=== PATIENT | male | born 1990 | race Caucasian/White ===

== ENCOUNTER 2018-03-06 13:08 | Emergency (ER) | payer BC ==
[2018-03-06 13:22] VITALS: BP 131/91
[2018-03-06] MEDS ORDERED: Albuterol/Ipratropium NEB.SOL* Albuterol 2.5 MG/Ipratropium 0.5 MG 3 ML INH ONE (13:31)
[2018-03-06] MEDS ORDERED: predniSONE TAB* 20 MG PO ONE (13:32)
--- NOTE | 2018-03-06 13:37 | ED ---
Respiratory - HPI Summary HPI Summary: 27 yr old male with two weeks of cough, tightness in his chest, SOB. He started using the MDI given to him in the ER a couple of years ago, and it seems to help some, but he ran out. He has been coughing up some phlegm. He has had feeling of some chills, fever. He denies smoking cigarettes, but has been smoking cigars. He has had pain with coughing. He states when he gets tight in the chest and SOB is with coughing episodes. He has had prior wheezing and acute bronchitis in the past. - History of Current Complaint Chief Complaint: UCChestPain Stated Complaint: CHEST PAIN/TROUBLE BREATHING Time Seen by Provider: 03/06/18 13:24 Pain Intensity: 5 - Allergy/Home Medications Allergies/Adverse Reactions: Allergies Allergy/AdvReac Type Severity Reaction Status Date / Time No Known Allergies Allergy Verified 03/06/18 13:16 Home Medications: Home Medications Albuterol HFA INHALER* [Ventolin HFA Inhaler*] 2 puff Q4HR PRN 03/06/18 [ History Confirmed 03/06/18] PMH/Surg Hx/FS Hx/Imm Hx Respiratory History: Reports: Hx Asthma Infectious Disease History: No Infectious Disease History: Denies: Traveled Outside the [place] in Last 30 Days - Family History Known Family History: Positive: None Family History: Denies cad and PE - Social History Occupation: Employed Full-time Alcohol Use: None Substance Use Type: Reports: None Smoking Status (MU): Light Every Day Tobacco Smoker Type: Cigars Amount Used/How Often: 1-2 every couple of months Have You Smoked in the Last Year: Yes Review of Systems Positive: Fever, Chills Positive: Chest Pain Positive: Shortness Of Breath, Cough All Other Systems Reviewed And Are Negative: Yes Physical Exam Triage Information Reviewed: Yes Vital Signs On Initial Exam: Initial Vitals Temp Pulse Resp BP Pulse Ox 97.6 F 92 25 131/91 96 03/06/18 13:13 03/06/18 13:13 03/06/18 13:13 03/06/18 13:13 03/06/18 13:13 Vital Signs Reviewed: Yes Appearance: Positive: Well-Appearing, No Pain Distress Skin: Positive: Warm, Skin Color Reflects Adequate Perfusion Head/Face: Positive: Normal Head/Face Inspection Eyes: Positive: EOMI ENT: Positive: Normal ENT inspection, Pharynx normal. Negative: Muffled voice, Hoarse voice Neck: Positive: Supple, Nontender Respiratory/Lung Sounds: Positive: Decreased Breath Sounds - bilateral, Wheezes - bialterally mostly in the bases. Cardiovascular: Positive: RRR. Negative: Murmur Abdomen Description: Positive: Nontender Musculoskeletal: Positive: Strength/ROM Intact Neurological: Positive: Sensory/Motor Intact, Alert, Oriented to Person Place, Time, CN Intact II-III Psychiatric: Positive: Normal - Brittany Coma Scale Best Eye Response: 4 - Spontaneous Best Motor Response: 6 - Obeys Commands Best Verbal Response: 5 - Oriented Coma Scale Total: 15 Diagnostics - Vital Signs Vital Signs Temp Pulse Resp BP Pulse Ox 03/06/18 13:13 97.6 F 92 25 131/91 96 - Laboratory Lab Statement: Any lab studies that have been ordered have been reviewed, and results considered in the medical decision making process. - Radiology chest pa/lat Xray Interpretation: No Acute Changes Radiology Interpretation Completed By: Radiologist - EKG 03/06/18 Cardiac Rate: NL EKG Rhythm: Sinus Rhythm ST Segment: Normal Ectopy: None Re-Evaluation - Re-Evaluation First Eval Change: Improved - He states he feels better after the neb. His lungs are now with better air movement. Disposition - Course Course Of Treatment: 27 yr old male with improvement after neb. Will rx with MDI and steroids. FU with PMD. - Diagnoses Provider Diagnoses: Asthmatic bronchitis, Hypertension Discharge - Sign-Out/Discharge Documenting (check all that apply): Discharge/Admit/Transfer - Discharge Plan Condition: Good Disposition: HOME Prescriptions: Albuterol HFA INHALER* [Ventolin HFA Inhaler*] 1 - 2 puff INH Q4H PRN #1 mdi PRN Reason: Cough predniSONE TAB* [Deltasone TAB*] 40 mg PO DAILY #8 tab Patient Education Materials: Hypertension (ED), Bronchospasm (ED) Referrals: Jenn Ayala MD [Medical Doctor] - 2 Days - Billing Disposition and Condition Condition: GOOD Disposition: HOME
--- NOTE | 2018-03-06 14:31 | RAD ---
HISTORY: Chest pain COMPARISONS: None VIEWS: 4: Frontal dual-energy and lateral views of the chest. FINDINGS: CARDIOMEDIASTINAL SILHOUETTE: The cardiomediastinal silhouette is normal. JEREMI: The jeremi are normal. PLEURA: The costophrenic angles are sharp. No pleural abnormalities are noted. LUNG PARENCHYMA: The lungs are clear. ABDOMEN: The upper abdomen is clear. There is no subphrenic gas. BONES AND SOFT TISSUES: No bone or soft tissue abnormalities are noted. OTHER: None. IMPRESSION: NO ACTIVE CARDIOPULMONARY DISEASE.
== END 2018-03-06 14:57 | disposition home or self-care (01) ==
LOC: UCCORT 13:08
DX: J45.909 Unspecified asthma, uncomplicated (principal); I10 Essential (primary) hypertension; F17.290 Nicotine dependence, other tobacco product, uncomplicated
CPT/HCPCS: 71046; 93005; 99202; A9270-GY; G0463; J7512

== ENCOUNTER 2018-11-20 12:53 | Emergency (ER) | payer BC ==
--- NOTE | 2018-11-20 16:03 | UC ---
Respiratory Complaint HPI - HPI Summary HPI Summary: Per healthcare consultant "c/o chest congestion, cough, runny nose, and chills x 5 days." -here w/ his friend whom he works w/. -+ asthma hx. uses albuterol alot. works w/ [employer] and saw dust triggers coughh -no fever, no body aches. no ST. no ear aches. + wheezing. -no relief w/ mucinex. - History of Current Complaint Chief Complaint: UCRespiratory Stated Complaint: CONGESTION RUNNY NOSE COUGH Time Seen by Provider: 11/20/18 15:52 Pain Intensity: 0 - Allergies/Home Medications Allergies/Adverse Reactions: Allergies Allergy/AdvReac Type Severity Reaction Status Date / Time No Known Allergies Allergy Verified 11/20/18 13:13 Home Medications: Home Medications Ibuprofen TAB* [Motrin TAB* 800 MG] 800 mg PO ONCE 11/20/18 [History Confirmed 11/20/18] guaiFENesin [Mucinex] 600 mg PO BID 11/20/18 [History Confirmed 11/20/18] PMH/Surg Hx/FS Hx/Imm Hx Previously Healthy: Yes Respiratory History: Asthma - Surgical History Surgical History: None - Family History Known Family History: Positive: Respiratory Disease - no asthma Family History: Denies cad and PE - Social History Alcohol Use: None Substance Use Type: None Smoking Status (MU): Light Every Day Tobacco Smoker Type: Smokeless Tobacco Amount Used/How Often: 1-2 every couple of months Have You Smoked in the Last Year: Yes - Immunization History Most Recent Tetanus Shot: UTD Review of Systems All Other Systems Reviewed And Are Negative: Yes Constitutional: Positive: Negative Skin: Positive: Negative Eyes: Positive: Negative ENT: Positive: Negative Respiratory: Positive: Cough Cardiovascular: Positive: Negative Gastrointestinal: Positive: Negative Genitourinary: Positive: Negative Motor: Positive: Negative Neurovascular: Positive: Negative Musculoskeletal: Positive: Negative Neurological: Positive: Negative Psychological: Positive: Negative Is Patient Immunocompromised?: No Physical Exam Triage Information Reviewed: Yes Appearance: Well-Appearing, No Pain Distress, Well-Nourished Vital Signs: Initial Vital Signs Temp 98.3 F 11/20/18 13:12 Pulse 102 11/20/18 13:12 Resp 20 11/20/18 13:12 BP 123/72 11/20/18 13:12 Pulse Ox 97 11/20/18 13:12 Vital Signs Reviewed: Yes Eye Exam: Normal ENT: Positive: Pharyngeal erythema - + PND, no exudate., Nasal congestion, Nasal drainage, TMs normal, Uvula midline. Negative: TM bulging, TM dull, TM red, Tonsillar swelling, Tonsillar exudate, Hoarse voice, Sinus tenderness Dental Exam: Normal Neck exam: Normal Neck: Positive: Supple, Nontender, No Lymphadenopathy Respiratory: Positive: Chest non-tender, No respiratory distress, No accessory muscle use, Decreased breath sounds - mild B/L, Wheezing - mild b/l expiratory. Negative: Crackles, Rhonchi, Stridor Cardiovascular Exam: Normal Cardiovascular: Positive: RRR, No Murmur Abdominal Exam: Normal Abdomen Description: Positive: Nontender, Soft Musculoskeletal Exam: Normal Neurological Exam: Normal Psychological Exam: Normal Skin Exam: Normal UC Diagnostic Evaluation - Laboratory O2 Sat by Pulse Oximetry: 97 Respiratory Course/Dx - Course Course Of Treatment: We discussed risks of prednisone including but not limited to anxiety, agitation, insomnia, GI upset, elevated blood pressures and blood sugar readings, adrenal crisis and avascular necrosis of the hip. -no e/o bactreial infection. - Differential Dx/Diagnosis Differential Diagnosis/HQI/PQRI: Asthma, Bronchitis, Sinusitis Provider Diagnosis: Bronchitis Discharge - Sign-Out/Discharge Documenting (check all that apply): Patient Departure All imaging exams completed and their final reports reviewed: No Studies - Discharge Plan Condition: Stable Disposition: HOME Prescriptions: Albuterol HFA INHALER* [Ventolin HFA Inhaler*] 1 - 2 puff INH Q4H PRN #1 mdi PRN Reason: Cough methylPREDNISolone [Medrol Dosepak 4 MG*] 4 mg PO DAILY #1 shira Patient Education Materials: Asthma (ED), Acute Bronchitis (ED) Referrals: Francisca Cortez MD [Primary Care Provider] - Additional Instructions: -Use chey albuterol every 4-6 hrs as needed. There is no evidence for bacterial infection at this time. The prednisone will help your cough and breathing. Consideration can be given to updating your breathing function once your current symptoms resolve due to the fact that the saw dust triggers your asthma frequently. - Billing Disposition and Condition Condition: STABLE Disposition: Home
[2018-11-20 16:16] VITALS: BP 128/86
== END 2018-11-20 16:15 | disposition home or self-care (01) ==
LOC: UCCORT 12:53
DX: J45.909 Unspecified asthma, uncomplicated (principal); R09.89 Other specified symptoms and signs involving the circulatory and respiratory systems; F17.290 Nicotine dependence, other tobacco product, uncomplicated; Z79.899 Other long term (current) drug therapy
CPT/HCPCS: 99212; G0463